=== PATIENT | female | born 2005 | race Caucasian/White ===

== ENCOUNTER → 2024-01-08 | Outpatient (CLI) | payer OTHER | LOC: M RAD 13:04 | PROVIDERS: ATTEND Nurse Practitioner Adult Health | DX: R22.1 Localized swelling, mass and lump, neck (principal) ==

== ENCOUNTER → 2025-04-11 | Outpatient (CLI) | payer OTHER | LOC: M RAD 13:40 | PROVIDERS: ATTEND Obstetrics & Gynecology | DX: O30.032 Twin pregnancy, monochorionic/diamniotic, second trimester (principal); Z3A.16 16 weeks gestation of pregnancy ==